=== PATIENT | male | born 1945 | race Caucasian/White ===

== ENCOUNTER → 2018-09-26 11:04 | Outpatient (CLI) | payer OTHER, SELFPAY ==
--- NOTE | 2018-09-26 | DI.MRI.S_ITS ---
PROCEDURE: MR KNEE LT WO CON INDICATIONS: Unilateral primary osteoarthritis, left knee TECHNIQUE: Noncontrast sagittal PD fast spin echo and T2 fast spin echo with fat saturation, sagittal 3-D FLASH with fat saturation; coronal T1 spin echo and PD fast spin echo with fat saturation, and axial PD fast spin echo with fat saturation through the knee. COMPARISON: [facility] [place], CR, XR KNEE ARTHRITIC SERIES BI, 09/05/2018, 14:48. FINDINGS: Image quality: Excellent. Menisci: Linear oblique high T2 signal intensity traverses the medial meniscal body and posterior horn, demonstrating inferior articular surface extension, indicating oblique tearing. There is lateral extrusion of the lateral meniscus, which is fragmented and demonstrates amorphous high signal intensity within the anterior horn, body, and posterior horn. Linear horizontal high T2 signal intensity traverses the posterior horn lateral meniscus, demonstrating superior articular surface extension. Detachment of the lateral meniscus posterior horn. Cruciate ligaments: There is chronic full-thickness tearing of the anterior cruciate ligament. Posterior cruciate ligament demonstrates mild T2 signal alteration within its mid and superior aspects, indicating partial thickness tearing. Medial structures: The medial collateral ligament appears intact. Visualized portions of the pes anserinus tendons appear normal. No abnormal bursal fluid. Lateral structures: The lateral collateral ligament, long and short heads of the biceps femoris tendon appear intact. The popliteus tendon appears normal. Iliotibial band appears normal. Anterior structures: The quadriceps and patellar tendons appear intact. Patellar alignment is normal. No femoral trochlear dysplasia or ventral trochlear prominence. No edema in the infrapatellar fat pad. Bones and cartilage: No bone marrow contusions or fractures. There is severe tricompartmental periarticular osteophyte formation. There is mild subchondral degenerative marrow edema within the medial tibial plateau anteriorly. Moderate ill-defined degenerative marrow edema within the posterior and anterior aspects of the lateral tibial plateau. Subchondral cysts within the anterior and posterior aspect of the lateral tibial plateau. Moderate diffuse articular cartilage loss overlies the weightbearing aspects of the medial femoral condyle and medial tibial plateau. Severe articular cartilage loss overlies the weightbearing aspects of the lateral femoral condyle and lateral tibial plateau. Articular cartilage fibrillation overlies the medial and lateral patellar facets, as well as the patellar apex. Joint space: There is a moderate knee joint effusion, and a moderate sized Gonzalez's cyst. Multiple small intra-articular loose bodies are present measuring less than 10 mm diameter. A small ganglion cyst along the popliteus is present. Normal appearing synovial plicae are incidentally noted. IMPRESSION: 1. Severe tricompartmental osteophytes with associated articular cartilage loss. 2. Medial and lateral meniscal tearing. 3. New joint effusion and Gonzalez's cyst. Small ganglion cyst along the popliteus. Multiple intra-articular loose bodies. 4. Full-thickness chronic anterior cruciate ligament tear. Partial-thickness posterior cruciate ligament tear. Dictated by: Roverto Varela M.D. on 09/26/2018 at 13:10 Approved by: Roverto Varela M.D. on 09/26/2018 at 13:28
== END ==
PROVIDERS: Visit Provider Orthopaedic Surgery
DX: M17.12 Unilateral primary osteoarthritis, left knee (principal); S83.242A Other tear of medial meniscus, current injury, left knee, initial encounter; S83.282A Other tear of lateral meniscus, current injury, left knee, initial encounter; S83.512A Sprain of anterior cruciate ligament of left knee, initial encounter; S83.522A Sprain of posterior cruciate ligament of left knee, initial encounter; M25.462 Effusion, left knee; M71.22 Synovial cyst of popliteal space [Baker], left knee; M67.462 Ganglion, left knee
CPT/HCPCS: 73721

== ENCOUNTER 2018-10-31 11:47 | Inpatient (IN) | payer OTHER, SELFPAY ==
[2018-10-24 10:36] VITALS: BMI 24.6
[2018-10-31] VITALS (12 sets, daily range): BP systolic 108–163; BP diastolic 55–84; PULSE 56–68; RESP 14–18; TEMP 35.9–36.8; O2SAT 92–99; BMI 24.6
--- NOTE | 2018-10-31 09:42 | DI.RAD.S_ITS ---
PROCEDURE: XR KNEE LT 1TO2V INDICATIONS: post operative total left knee TECHNIQUE: 2 view(s) of the knee acquired. COMPARISON: [facility] [place], XR BONE LENGTH SCANOGRAM, 10/11/2018, 14:58. [facility] [place], [place], XR KNEE ARTHRITIC SERIES BI, 09/05/2018, 14:48. FINDINGS: Bones: Patient is status post knee joint arthroplasty. Hardware components are in expected positions. Visualized bony structures are intact. 1 cm bone fragment projects adjacent to the distal femoral diametaphysis although no donor site is seen. Soft tissues: Overlying postoperative changes are noted. Scattered vascular calcifications. IMPRESSION: Expected postoperative alignment. Dictated by: Pete Paz M.D. on 11/01/2018 at 9:59 Approved by: Pete Paz M.D. on 11/01/2018 at 10:01
[2018-10-31] MEDS: LACTATED RINGERS 1,000 ML 42 ML IV ×2 (12:55→16:26)
[2018-10-31] MEDS: CELECOXIB 200 MG CAPSULE PO (12:55)
[2018-10-31] MEDS: PREGABALIN 75 MG CAPSULE PO (12:55)
[2018-10-31] MEDS: ACETAMINOPHEN 325 MG TABLET 975 MG PO (12:55)
--- NOTE | 2018-10-31 14:59 | PM.PREOP ---
Pre-operative Note Interval Note History & Physical reviewed/Exam performed by Physician: Yes Changes to H&P: No
--- NOTE | 2018-10-31 15:00 | P.OP_ITS ---
Operative Date/Time/Diagnoses Date of procedure: 10/31/18 Time of procedure: 16:44 Pre-op diagnosis: Left knee osteoarthritis with valgus alignment Post-op diagnosis: same Procedure & Clinicians Procedure: Left total knee arthroplasty Same procedure as scheduled: Yes Indications: The patient presents today for total knee arthroplasty after f ailure of conservative treatment. The nature of the procedure including the risks and benefits, alternatives, postoperative course and expected outcome were discussed and all questions answered. Consent was obtained. Operative site confirmed and marked. Surgeon: Sandip Anaya Medical Health Researcher: Dillon Ortiz Anesthesia Type: General, Spinal and Local Operative Notes Findings: Severe tricompartmental osteoarthritis. Closure Type: primary Specimen(s): none sent Prosthetic devices, grafts, tissues, transplants, or devices: Mathur and [employer] Benigno BCS: 7 femoral component, 8 tibial component, 9 mm BCS polyethylene tray and 35 x 9 mm round patella Applied: implant(s) Estimated Blood Loss (mL): 20 Blood products transfused: none Tourniquet time (min): 59 Procedure in detail: The patient was taken to the operative suite and placed under general and spinal anesthesia. The patient was given prophylactic antibiotics prior to surgery. The patient was also given tranexamic acid, 1 g, just prior to surgery for postoperative hemostasis. The lateral knee was prepped and the joint injected with 20 mL of 1% Lidocaine with epinephrine. The knee was then prepped and draped in usual sterile fashion. The leg was exsanguinated with an Esmarch dressing and the tourniquet raised to 250 torr. A 15 cm anterior incision was made. Next a medial trivector arthrotomy was made. The extensor mechanism was marked to ensure accurate repair. Initial exposing dissection was carried out medially and laterally. The knee was then extended and the patellar thickness was measured and a cut made removing approximately 9 mm of bone with a goal of restoring normal patellar thickness. The patella was then sized and drilled. Some excess lateral bone was excised and the patellofemoral ligament released. The tourniquet was then released. The knee was then flexed and the [employer] femoral guide was placed. The anterior pins were placed and the distal rotation holes drilled. The distal cutting guide was placed and the templated distal femoral cut was made. The templating cutting block was then placed and the anterior, posterior and chamfer cuts made. The [employer] tibial guide was placed and the alignment checked along the axis of the proximal tibial with a cheryl. The proximal tibial cut was then made with an oscillating saw. All meniscus and bony debris was then removed. Flexion extension gaps were checked. No specific balancing was required other than routine exposure and removal of osteophytes. The soft tissues were then injected with a combination of 20 mL of half percent Marcaine with epinephrine and 20 mL of Exparel. The trial components were then placed. The knee went into full extension and flexion beyond 120?. There was excellent medial- lateral balance throughout motion. Patellar tracking was excellent. The trial components were removed and size is confirmed for the final implants. The knee was then exsanguinated with an Esmarch dressing and the tourniquet reapplied for cementing. The knee was cleansed with Pulsavac irrigation and dried. The final components were cemented in with high viscosity vacuum mixed bone cement with antibiotics. The knee was held in extension and the patellar clamp until the cement had adequately cured. The knee was then irrigated with dilute Betadine solution. The extensor mechanism was closed with 5 interrupted #1 Vicryl sutures in 90 degrees of flexion. The joint was then injected with a combination of 1 g of tranexamic acid and 20 mL of quarter percent Marcaine with epinephrine. The subcutaneous tissue was closed with 2-0 Vicryl. The skin was closed with darya and surgical adhesive. An Aquacel dressing and Jeison wrap were then applied. Complications: none Condition: stable Disposition: PACU Plan for aftercare: [facility] protocol for total knee arthroplasty.
[2018-10-31] MEDS: CEFAZOLIN 2 GM/100 ML FROZ.PIGGY IV ×2 (15:10→21:50)
[2018-10-31] MEDS: LIDOCAINE 1% W/EPI INJ 20 ML INJ (15:10)
[2018-10-31] MEDS: TRANEXAMIC ACID 1,000 MG VIAL 1000 MG INJ (15:15)
--- NOTE | 2018-10-31 15:52 | SUR.OPER ---
Supine on padded OR bed. Pillow under head, arms secured on padded armboards <90 degree abduction. Safety belt across torso. Non-operative leg secured with tape over blanket over lower leg. Operative leg secured in DeMayo/Abdelrahman positioner. Foam padded brace at thigh of operative leg.
[2018-10-31] MEDS: BUPIVACAINE 0.25% W/ EPI (PF) 40 ML, BUPIVACAINE LIPOSOME 266 MG, SODIUM CHLORIDE 0.9% ... INJ (16:00)
[2018-10-31] MEDS: [UNRECOGNIZED DRUG - OTHER] INJ (16:03)
[2018-10-31] MEDS: EPI INJ (16:03)
[2018-10-31] MEDS: TRANEXAMIC ACID INJ (16:03)
[2018-10-31] MEDS: BUPIVACAINE INJ (16:03)
--- NOTE | 2018-10-31 17:52 | SUR.PHASEI ---
1723 To room 228, bed down and locked, call light within reach. at bedside. patient awake and talking, oriented. Clothing bag to the room. SCDs on. Stable, no questions from patient or staff.
[2018-10-31] MEDS: LACTATED RINGERS 1,000 ML 125 ML IV ×2 (18:35→23:37)
[2018-10-31] MEDS: NAPROXEN 250 MG TABLET PO (20:47)
[2018-10-31] MEDS: ALLOPURINOL 300 MG TABLET PO (20:47)
[2018-10-31] MEDS: DOCUSATE 100 MG CAPSULE PO (20:47)
[2018-10-31] MEDS: ASPIRIN EC 81 MG TABLET PO (20:47)
[2018-10-31] MEDS: MINERAL OIL 473 ML OIL 15 ML PO (21:50)
[2018-10-31] MEDS: diphenhydrAMINE 25 MG TABLET 50 MG PO (21:50)
--- NOTE | 2018-10-31 22:32 | PC.NURSE ---
Patient is A&O x4 pleasant and cooperative w/ staff and able to make needs known. Patient has yet to be out of bed, has not wanted to get out or dangle at bedside. Patient's is staying in this evening. Drg. is CDI, +CMS, ++PP, patient states he is starting to feel sensation coming back. Patient has denied any pain and refused his APAP at 2100. Call light w/in reach, bed in low pos. alarm active. Patient states he is planning on returning back home tomorrow.
[2018-11-01 04:19] VITALS: BP 166/88; PULSE 65; RESP 16; TEMP 36.4; O2SAT 95
[2018-11-01 05:13] VITALS: BP 148/75; PULSE 60; RESP 16; TEMP 36.5; O2SAT 95
[2018-11-01] MEDS: CEFAZOLIN 2 GM/100 ML FROZ.PIGGY IV (06:03)
[2018-11-01] MEDS: MINERAL OIL 473 ML OIL 15 ML PO ×2 (06:03→10:52)
[2018-11-01 06:28] LABS: Hematocrit 40.1 % (41-53); Hemoglobin 13.4 g/dL (13.5-17.5)
--- NOTE | 2018-11-01 09:10 | PM.DS.1 ---
History of Present Illness Date Patient Seen: 11/01/18 Time Patient Seen: 09:11 Chief complaint: [id number] Narrative: The patient presents today for total knee arthroplasty after failure of conservative treatment. The nature of the procedure including the risks and benefits, alternatives, postoperative course and expected outcome were discussed and all questions answered. Consent was obtained. Operative site confirmed and marked. Discharge Providers Date of admission: 10/31/18 11:47 Discharge Date: 11/01/18 Primary care physician: Asa Nunes PA-C Consults: 10/31/18 18:16 Consult to Discharge Planning Routine Comment: Consult to Physical Therapy Evaluate & Treat Comment: Physician Instructions: postop TKA protocol Consult to Respiratory Therapy Evaluate & Treat Comment: Physician Instructions: Evaluate and treat Discharge provider: Teri Miranda PA-C Summary Discharge Diagnosis: s/p L total knee arthroplasty Hypertension Hyperlipidemia Gout Hospital Course: Jamin was admitted for left total knee arthroplasty with Dr. Anaya. Hospital course unremarkable. On postop day 1. Patient was ready to discharge home. He is eating and voiding without difficulty or assistance. He has worked with physical therapy throughout his stay. Pain was well controlled with Tylenol and Aleve. ASA for DVT prophylaxis. Does need to set up his outpatient physical therapy, our office will be coordinating with the patient to set this up. Status at Discharge Functional status at discharge: uses cane/walker Exam Vital Signs (past 8 hours): - 11/01/18 04:19 11/01/18 05:13 Temperature 97.6 F 97.7 F Pulse Rate 65 60 Respiratory Rate 16 16 Blood Pressure 166/88 H 148/75 H Pulse Oximetry 95 95 Oxygen Delivery Method Room Air Oxygen Flow Rate 0 Narrative Exam Narrative: Patient is sitting up in bed in no acute distress. He is alert orient x3. Dressing on left knee is CDI. Calves are soft, compressible, nontender bilaterally. Pulses are symmetrical. Sensation intact to light touch throughout bilateral lower extremities. He is able to actively dorsiflex and plantar flex. No complaints this morning. Objective Labs Result Diagrams: 11/01/18 05:55 Labs: Laboratory Results - last 24 hr 11/01/18 05:55 Hgb 13.4 L Hct 40.1 L Discharge Plan Discharge Plan Patient Disposition: Home Discharge Med Rec/Prescriptions Prescriptions: New acetaminophen 325 mg Tablet 975 mg PO TID Qty: 60 RF: 0 aspirin 81 mg Tablet,Delayed Release (Dr/Ec) 81 mg PO BID Qty: 60 RF: 0 docusate sodium [DOK] 100 mg Capsule 100 mg PO BID Qty: 60 RF: 0 Continued diphenhydramine HCl 50 mg Capsule 50 mg PO BEDTIME RF: 0 loperamide 2 mg Capsule 2 mg PO BID RF: 0 metoprolol succinate 50 mg Tablet Extended Release 24 Hr 50 mg PO DAILY RF: 0 hydrochlorothiazide 50 mg Tablet 50 mg PO DAILY RF: 0 amlodipine 5 mg Tablet 5 mg PO DAILY RF: 0 allopurinol 300 mg Tablet 300 mg PO BEDTIME RF: 0 acyclovir 200 mg Capsule 200 mg PO QAM RF: 0 bupropion HCl 150 mg Tablet Extended Release 24 Hr 150 mg PO QAM RF: 0 naproxen sodium [Aleve] 220 mg Capsule 220 mg PO BID RF: 0 Follow up/Referrals: Sandip Anaya MD [Physician] - Skin/Wound/Dressing Care Dressing: can remove lubna wrap after 48 hours. Leave dressing in place. Visit Report/Discharge Packet Instructions: DI for Knee Replacement Discharge Data Primary Care Provider: Asa Nunes Attending Provider: Sandip Anaya Admit Date/Time: 10/31/18 11:47 Quality VTE Deep Vein Thrombosis/Pulmonary Embolism Present on Admission: No
--- NOTE | 2018-11-01 09:20 | PT.IIE ---
Current Diagnoses Bilateral primary osteoarthritis of knee (10/31/18) Surgery Performed Operation Date: 10/31/18 14:00 Actual Procedures p Total Knee Arthroplasty(Left) - Sandip Anaya MD Surgical History (Last Updated 10/24/18 @ 12:30 by Spring Sykes RN) H/O: vasectomy (Acute) History of incision and drainage (Acute 11/22/12) History of left cataract extraction (Acute) Hx of arthroscopy of left knee (Acute) Hx of laminectomy (Acute) Hx of repair of right rotator cuff (Acute) Hx of right inguinal hernia repair (Acute) Medical History (Last Updated 10/24/18 @ 12:30 by Spring Sykes RN) Depression (Acute) First degree AV block (Acute) Former smoker (Acute) Gout (Acute) HLD (hyperlipidemia) (Acute) HTN (hypertension) (Acute) Kidney stone (Acute) Osteoarthritis (Acute) Umbilical hernia (Acute) Physical Therapy Inpatient Evaluation/Re-Eval M1 PT/OT-IP Prior Functional Status Start: 11/01/18 13:12 Freq: NEEDED Status: Active Protocol: Document 11/01/18 09:20 AB (Rec: 11/01/18 13:19 AB [id number]) Medical Review Prior Functional Status Medical History Reviewed Yes Communication able to make needs known Mobility and Gait pt stated that he is independent with all mobilities and ambulation without AD Social History Household Members spouse Living Arrangements House Number of Floors (Floors) Two Floors Number of Stairs To Enter/Railing? 14 steps with L rail ascending Home Environment Standard Height Toilet Tub/Shower Home Equipment Front Wheel Walker Quad Cane Hand Held Shower M2 PT-IP Current Condition Start: 11/01/18 13:12 Freq: NEEDED Status: Active Protocol: Document 11/01/18 09:20 AB (Rec: 11/01/18 13:19 AB [id number]) Physical Therapy Current Condition Current Condition Evaluation Date 11/01/18 Treatment Diagnosis L TKA; difficulty in walking Onset Date 10/31/18 Weight Bearing Status Weight Bearing Status Weight Bear as Tolerated M3 PT-IP Subjective Start: 11/01/18 13:12 Freq: NEEDED Status: Active Protocol: Document 11/01/18 09:20 AB (Rec: 11/01/18 13:19 AB [id number]) Subjective Physical Therapy Visit Type Type Initial Evaluation Visit Start Time 09:20 Visit Stop Time 10:23 Total Visit Minutes 57 Number of WRAP CHECKER Visits 0 Physical Therapy Visit Comments Patient Comments pt agreeable to do PT; pt's spouse present Patient Goals to go home Therapy Pain Assessment Pain Present Pain Present Denied Pain M4 PT-IP Mobility and Gait Start: 11/01/18 13:12 Freq: NEEDED Status: Active Protocol: Document 11/01/18 09:20 AB (Rec: 11/01/18 13:19 AB [id number]) PT-Bed Mobility Assessment Supine to Sit Supine to Sit Standby Assistance Sit to Supine Sit to Supine Standby Assistance Scooting Scooting to Edge of Bed Standby Assistance PT-Transfer Assessment Sit to and From Stand Sit to and from Stand Standby Assistance Contact Guard Assistance 1 Person Assistance Use of Upper Extremities Equipment Transfer Assistive Device Gait Belt Front Wheeled Walker Orthotic/Prosthetic Devices or Brace: No Transfers Transfer Destination Chair Transfer Technique pt ambulated using FWW Transfer Ability Level of Assist Standby Assistance Contact Guard Assistance Gait Assessment Gait Gait Assistance Required: Standby Assistance Contact Guard Assist Distance (Feet) 125 Able to Maintain Weight Bearing Status Yes During Gait Assistive Devices Assistive Device Gait Belt Front Wheeled Walker Orthotic/Prosthetic Devices or Brace: No Gait Deviations General Gait Pattern Antalgic Decreased Stride Length Decreased Feet Clearance Factors Limiting Gait Function Factors Limiting Gait Function Decreased Activity Tolerance Decreased Strength Limited Range of Motion Pain Poor Balance Poor Safety Awareness Comments Gait Comments pt can be impulsive Stair Climbing Assessment Evaluation Level of Assist On Stairs Contact Guard Assistance Devices Stair Climbing Assistive Devices Left Railing Technique/Endurance Stair Climbing Direction Ascend and Descend Stair Climbing Technique Step to Step Number of Steps Climbed 3 Query Text: Stair Climbing Set # Repetitions (reps) 5 Comments Stair Climbing Comments caregiver training with pt and pt's spouse. instructed pt on how to use safety belt and how to assist pt. spouse was able to assist pt safely with stair climbing PT-Balance Assessment Sitting Balance and Reactions Static Sitting Balance Ability Good Dynamic Sitting Balance Ability Good Standing Balance and Reactions Static Standing Balance Ability Fair Dynamic Standing Balance Ability Fair Device Used FWW M5 PT-IP Objective Assessments Start: 11/01/18 13:12 Freq: NEEDED Status: Active Protocol: Document 11/01/18 09:20 AB (Rec: 11/01/18 13:19 AB [id number]) Orientation Orientation/Cognition Level of Alertness Alert Orientation Name Age Birthday Month Date Year Day of Week Place Situation Language Function Ability No Deficits Noted Safety Awareness Understands Safety Issues Memory Description No Deficits Noted Gross Range of Motion Lower Extremity ROM Assessment Left Impaired Impairments L knee flexion: ~ 80 deg Strength Lower Extremity Strength Assessment Left Impaired Hip 4-/5 Knee 3+/5 Coordination Assessment Gross Coordination Gross Coordination WNL Sensation Assessment Sensation Gross Sensation WNL Muscle Tone Muscle Tone WNL Yes M6 PT-IP Treatment Start: 11/01/18 13:12 Freq: NEEDED Status: Active Protocol: Document 11/01/18 09:20 AB (Rec: 11/01/18 13:19 AB [id number]) Physical Therapy Treatment Exercises Exercises Ankle Pumps Heel Slides Education Education Provided Precautions Weight Bearing Status Post-Op Packet Safety M7 PT-IP Assessment and Plan Start: 11/01/18 13:12 Freq: NEEDED Status: Active Protocol: Document 11/01/18 09:20 AB (Rec: 11/01/18 13:19 AB [id number]) PT Summary Assessment and Plan Potential Rehabilitation Potential Good Status of Condition at Evaluation Stable Summary Impairments Pain ROM Strength Balance Bed Mobility Transfers Gait Activity Tolerance Assessment Summary pt requiring SBA to occasional CGA with mobility. pt will have his spouse to assist him at home. caregiver training conducted and spouse was able to assist pt safely. pt plans to go home today. Goals Bed Mobility Goal Independent Transfer Goal Independent Front Wheeled Walker Gait Goal Independent Front Wheel Walker Gait Distance 200 Other Goals up/down 14 steps L rail ascending SBA Days to Meet Goals 3 Frequency of Treatment Frequency Of Treatment Twice a Day Treatment Plan Physical Therapy Treatment Plan Bed Mobility Training Transfer Training Gait Training Therapeutic Exercise Balance Retraining Post Op Education Discharge Planning Hot or Cold Pack Neuromuscular Re-ed Coordination Retraining Manual Therapy Recommendations To Nursing Amount of Assist Needed 1 Person Assist Discharge Recommendations PT Discharge Recommendations Home with Assistance Outpatient PT
[2018-11-01] MEDS: NAPROXEN 250 MG TABLET PO (09:32)
[2018-11-01] MEDS: METOPROLOL ER 50 MG TABLET PO (09:32)
[2018-11-01] MEDS: buPROPion XL 150 MG TAB PO (09:32)
[2018-11-01] MEDS: ACYCLOVIR 200 MG CAPSULE PO (09:32)
[2018-11-01] MEDS: hydroCHLOROthiazide 25 MG TABLET 50 MG PO (09:32)
[2018-11-01] MEDS: ASPIRIN EC 81 MG TABLET PO (09:32)
[2018-11-01] MEDS: AMLODIPINE 5 MG TABLET PO (09:32)
[2018-11-01] MEDS: SODIUM CHLORIDE 0.9% FLUSH 10 ML IV (09:34)
[2018-11-01] MEDS: DOCUSATE 100 MG CAPSULE PO (10:52)
[2018-11-01 11:00] VITALS: BP 131/64; PULSE 68; RESP 16; TEMP 37.1; O2SAT 96
--- NOTE | 2018-11-01 12:38 | PC.NURSE ---
Day shift: Pt left unit at 1230 headed for homes with his spouse. Taken to private car by ALLEN Valdez in [facility]. Paperwork signed and all questions answered. Dressing/ERNIE wrap CDI. Pt has all personal belongings. Pt is [employer]. No MD scrips that are new.
--- NOTE | 2018-11-01 14:49 | CM.DANOTE ---
Discharge Planning/Care Management CM Discharge Assessment Start: 11/01/18 14:47 Freq: Status: Discharge Protocol: Document 11/01/18 14:47 ITV (Rec: 11/01/18 14:49 ITV [id number]) Discharge Planning Assessment Advance Directives? No: Declines further information History Provided By Medical Record Prior Living Arrangements House Household Members spouse Is patient alert and oriented? Yes Review Status In Process Pre-Anesthesia Assessment Start: 10/24/18 10:36 Freq: Status: Discharge Protocol: Document 10/24/18 10:36 CAB (Rec: 10/24/18 11:43 CAB [id number]) Pre-Anesthesia Assessment Patient Also Known As Perez (AKA) Patient Information Reviewed Via Phone Assessment Assessment Completed With Patient Diagnostic Results BMP/CMP CBC EKG Comment Outside labs/EKG scanned to record Primary Care Provider Asa Nunes Medical Clearance Received Yes Seen Specialist in Last 12 Months Yes Specialist Seen Orthopedist Comment PCP pre-op/clearance 09/14/18 scanned to record Primary Language Zimbabwean Hansard Reporter Required No Height 185.42 cm Weight 84.822 kg Body Mass Index (BMI) 24.6 Hearing Ability Normal Visual Assist Contacts Magnifying Glass Dentition Type Teeth, Natural Present Barriers to Learning None Other Aids No Hx Anesthesia Reactions No: Positive Stop Bang Assessment Hx Family Anesthesia Reaction No Hx Malignant Hyperthermia No Hx Blood Transfusions No Anesthesia Review Requested No alcohol intake current alcohol intake frequency a few times a week Smoking Status Former smoker Tobacco type cigarettes how long ago did patient quit smoking Quit 1987 Substance Use Type does not use Pain Present Pain Reported Musculoskeletal Symptoms Abnormal Gait Difficulty Walking Joint Pain History of Falling (Recent or History of Yes ) Patient is completely paralyzed or No completely immobile Mental Status Oriented to own ability Is patient on oxygen? No Does patient have LINARES/SOB No Hx Sleep Apnea No Suspected Sleep Apnea Yes: Positive Currently Taking a Beta Ash Yes: Metoprolol Can You Climb a Flight of Stairs Without Yes SOB Hx Chest Pain No Hx SOB No Hx Syncope or Dizziness No Anti-Coagulant Therapy No Has a Sheet Metal Insulator No Cardiac Testing No Hx Pacemaker/ICD No Pacemaker Rep Required? No Cardiac Clearance Received Not Applicable Diet Type At Home Regular dysphagia No Bladder Pattern Frequency Nocturia Urinary Catheter Present No Hx Urinary Self Catheterization No Diabetes No Hx Drug Resistant Organism No Presence of External or Internal Medical No Devices Have you traveled outside the [facility] in the last 30 days? Marital Status Lives With spouse Prior Living Arrangements House Number of Stairs To Enter/Railing? 16 stairs, railing present Support System Child/Children Spouse Does the Patient Have Assistance After Yes Surgery Patient Discharge Plan Description Return Home Comment Pt advised possible same day Feels Safe in Current Environment Yes Been Physically Hurt or Threatened By a No Person in Current Environment Do you have thoughts of harming yourself None or others? Are you currently considering suicide? No Do you have a plan to hurt yourself or No Plan others? Do You Have Any Spiritual Beliefs That No May Affect Your HC Choices? Do You Have Any Cultural Practices That No May Affect Your HC Choices? Spiritual Referral None Comment Muslim Who Can We Speak to About Patient's Care Family, friends Identifying Code for Release of Patient Declines to issue Information Health Care Proxy/Next of Kin Yashira () Health Care Proxy Emergency Contact Name Yashira () Emergency Contact Advance Directives? No: Declines further information Power of Dialysis Registered Nurse No PAC Instructions Durable medical equipment Medications to take/avoid Nasal antibiotic No ETOH/petroleum product on skin DOS NPO Post-op transportation Pre-surgical wash Sturdy shoes/comfortable clothes Do not bring valuables and remove jewelry Stop Bang Assessment Do you snore loudly (louder than talking Yes or loud enough to be heard through closed doors) Do you often feel tired, fatigued or No sleepy during the daytime Has anyone ever observed you stop No breathing while sleeping? Do you have, or are you being treated Yes for, high blood pressure Is your BMI more than 35 kg/m2 No Age over 50 Yes Estimated neck circumference greater Yes than 40cm or 16in Gender male Yes Result Positive
--- NOTE | 2018-11-01 14:51 | CM.DANOTE ---
Discharge Planning/Care Management DCP: assessment: case received and discussed in Team Rounds. EMR reviewed. Pt is a 73 year old male who admitted yesterday for a planned TKA. Payer: [employer] ADV Admission status: INPT: confirmed by UR CHITO Carrillo Surgeon: Dr. Anaya PCP: Asa Nunes. Pt identified his post hospital plan during pre-op assessment as home with spouse support. PT was ordered for today, had not worked yet with pt. Checked in later in the day. DC to home order was noted. See that PT Guerda did work with pt and did some caregiver training with his Yashira. CHITO Berg confirms that pt did d/c to home on [address] with his spouse drivin today. [facility] will be coordinating the OUTPT therapy appts with pt, per jeff Alonzo. CM Discharge Assessment Start: 11/01/18 14:47 Freq: Status: Discharge Protocol: Document 11/01/18 14:47 ITV (Rec: 11/01/18 14:49 ITV [id number]) Discharge Planning Assessment Advance Directives? No: Declines further information History Provided By Medical Record Prior Living Arrangements House Household Members spouse Is patient alert and oriented? Yes Review Status In Process Pre-Anesthesia Assessment Start: 10/24/18 10:36 Freq: Status: Discharge Protocol: Document 10/24/18 10:36 CAB (Rec: 10/24/18 11:43 CAB [id number]) Pre-Anesthesia Assessment Patient Also Known As Perez (AKA) Patient Information Reviewed Via Phone Assessment Assessment Completed With Patient Diagnostic Results BMP/CMP CBC EKG Comment Outside labs/EKG scanned to record Primary Care Provider Asa Nunes Medical Clearance Received Yes Seen Specialist in Last 12 Months Yes Specialist Seen Orthopedist Comment PCP pre-op/clearance 09/14/18 scanned to record Primary Language Japanese Print Journalist Required No Height 185.42 cm Weight 84.822 kg Body Mass Index (BMI) 24.6 Hearing Ability Normal Visual Assist Contacts Magnifying Glass Dentition Type Teeth, Natural Present Barriers to Learning None Other Aids No Hx Anesthesia Reactions No: Positive Stop Bang Assessment Hx Family Anesthesia Reaction No Hx Malignant Hyperthermia No Hx Blood Transfusions No Anesthesia Review Requested No alcohol intake current alcohol intake frequency a few times a week Smoking Status Former smoker Tobacco type cigarettes how long ago did patient quit smoking Quit 1987 Substance Use Type does not use Pain Present Pain Reported Musculoskeletal Symptoms Abnormal Gait Difficulty Walking Joint Pain History of Falling (Recent or History of Yes ) Patient is completely paralyzed or No completely immobile Mental Status Oriented to own ability Is patient on oxygen? No Does patient have LINARES/SOB No Hx Sleep Apnea No Suspected Sleep Apnea Yes: Positive Currently Taking a Beta Ash Yes: Metoprolol Can You Climb a Flight of Stairs Without Yes SOB Hx Chest Pain No Hx SOB No Hx Syncope or Dizziness No Anti-Coagulant Therapy No Has a Dry Cleaning Machine Operator No Cardiac Testing No Hx Pacemaker/ICD No Pacemaker Rep Required? No Cardiac Clearance Received Not Applicable Diet Type At Home Regular dysphagia No Bladder Pattern Frequency Nocturia Urinary Catheter Present No Hx Urinary Self Catheterization No Diabetes No Hx Drug Resistant Organism No Presence of External or Internal Medical No Devices Have you traveled outside the [facility] in the last 30 days? Marital Status Lives With spouse Prior Living Arrangements House Number of Stairs To Enter/Railing? 16 stairs, railing present Support System Child/Children Spouse Does the Patient Have Assistance After Yes Surgery Patient Discharge Plan Description Return Home Comment Pt advised possible same day Feels Safe in Current Environment Yes Been Physically Hurt or Threatened By a No Person in Current Environment Do you have thoughts of harming yourself None or others? Are you currently considering suicide? No Do you have a plan to hurt yourself or No Plan others? Do You Have Any Spiritual Beliefs That No May Affect Your HC Choices? Do You Have Any Cultural Practices That No May Affect Your HC Choices? Spiritual Referral None Comment Sabianism Who Can We Speak to About Patient's Care Family, friends Identifying Code for Release of Patient Declines to issue Information Health Care Proxy/Next of Kin Yashira () Health Care Proxy Emergency Contact Name Yashira () Emergency Contact Advance Directives? No: Declines further information Power of Customer Agent No PAC Instructions Durable medical equipment Medications to take/avoid Nasal antibiotic No ETOH/petroleum product on skin DOS NPO Post-op transportation Pre-surgical wash Sturdy shoes/comfortable clothes Do not bring valuables and remove jewelry Stop Bang Assessment Do you snore loudly (louder than talking Yes or loud enough to be heard through closed doors) Do you often feel tired, fatigued or No sleepy during the daytime Has anyone ever observed you stop No breathing while sleeping? Do you have, or are you being treated Yes for, high blood pressure Is your BMI more than 35 kg/m2 No Age over 50 Yes Estimated neck circumference greater Yes than 40cm or 16in Gender male Yes Result Positive
== END 2018-11-01 12:40 | disposition home or self-care (01) | DRG 470 ==
PROVIDERS: Admitting Provider Orthopaedic Surgery; PCP Physician Assistant; Visit Provider Orthopaedic Surgery
PROC: 0SRD0JZ Replacement of Left Knee Joint with Synthetic Substitute, Open Approach (ICD-10-PCS; CPT 27447; principal; 2018-10-31 14:00)
DX: M17.12 Unilateral primary osteoarthritis, left knee (principal); I10 Essential (primary) hypertension; E78.5 Hyperlipidemia, unspecified; F32.9 Major depressive disorder, single episode, unspecified; M21.062 Valgus deformity, not elsewhere classified, left knee; Z87.891 Personal history of nicotine dependence
CPT/HCPCS: 36415; 73560; 85014; 85018; 94762; 97116; 97161; 97530; C1776; C9290; J0690; J1100; J2250; J2274; J2405; J2704